=== PATIENT | female | born 1995 | race Caucasian/White ===

== ENCOUNTER → 2020-02-12 10:58 | Outpatient (CLI) | payer BC, SELFPAY ==
[2020-02-12 12:26] LABS: Progesterone Level 5.72 ng/mL (See Comment)
== END ==
PROVIDERS: Visit Provider Obstetrics & Gynecology
DX: N94.6 Dysmenorrhea, unspecified (principal); N93.9 Abnormal uterine and vaginal bleeding, unspecified
CPT/HCPCS: 36415; 84144

== ENCOUNTER → 2020-03-11 11:50 | Outpatient (CLI) | payer BC, SELFPAY ==
[2020-03-11 14:19] LABS: Progesterone Level 10.58 ng/mL (See Comment)
== END ==
PROVIDERS: Visit Provider Obstetrics & Gynecology
DX: N97.9 Female infertility, unspecified (principal)
CPT/HCPCS: 36415; 84144

== ENCOUNTER → 2020-04-07 17:05 | Outpatient (CLI) | payer BC, SELFPAY | PROVIDERS: Visit Provider Obstetrics & Gynecology | DX: Z12.4 Encounter for screening for malignant neoplasm of cervix (principal); Z11.3 Encounter for screening for infections with a predominantly sexual mode of transmission ==

== ENCOUNTER → 2020-04-22 13:39 | Outpatient (CLI) | payer BC, SELFPAY ==
[2020-04-22 15:52] LABS: Color, Urine Yellow (Yellow); Glucose, Dipstick Normal (Normal); Ketone-Dipstick 50 mg/dl (Negative); Leukocyte Esterase-Dipstick 100 /ul (Negative); Nitrite-Dipstick Negative (Negative); Occult Blood-Urine Negative /ul (Negative); Protein-Dipstick 15 mg/dl (Negative); Specific Gravity, Urine 1.025 (1.002-1.030); Urine Bilirubin Dipstick Negative (Negative); Urine Clarity Cloudy (Clear); Urine Urobilinogen Normal (Normal)
[2020-04-22 15:57] LABS: Absolute Lymphocyte Count 1.59 X10^3/uL (0.83-4.51); Absolute Neutrophil Count 5.6 X10^3/uL (2.0-7.7); Basophil# 0.02 X10^3/uL; Basophil% 0.3 % (0-1); Eosinophil# 0.02 X10^3/uL; Eosinophils% 0.3 % (0-5); Hematocrit 41.4 % (37-47); Hemoglobin 14.3 g/dL (12.0-15.0); Lymphocyte # 1.59 X10^3/ul (4.0); Lymphocyte % 20.4 % (19-41); Mean Corp Hgb Conc 34.5 g/dL (32-36); Mean Corpuscular Hgb 30.8 pg (27.0-32.0); Mean Corpuscular Volume 89.2 fL (81-99); Mean Platelet Vol. 11.8 fl (6.2-12.0); Monocyte# 0.56 X10^3/uL; Monocyte% 7.2 % (0-10); NRBC Flagged by Analyzer 0 % (0-5); Neutrophil % 71.7 % (47-70); Platelet Count 208 K/mm3 (150-450); RBC Distribution Width CV 12.2 % (11.6-14.6); Red Blood Count 4.64 M/mm3 (4.2-5.4); White Blood Count 7.8 K/mm3 (4.4-11.0)
[2020-04-22 16:12] LABS: Amphetamine Urine VISTA NEGATIVE (<1000 ng/mL); Barbiturate Urine VISTA NEGATIVE (< 200 ng/mL); Benzodiazepine Urine VISTA NEGATIVE (< 200 ng/mL); Cocaine Urine VISTA NEGATIVE (< 300 ng/mL); Ecstacy Urine VISTA NEGATIVE (< 500 ng/mL); Methadone Urine VISTA NEGATIVE (< 300 ng/mL); PCP Urine VISTA NEGATIVE (< 25 ng/mL); THC Urine VISTA NEGATIVE (< 50 ng/mL); Vista UDS pH Range 6
[2020-04-22 16:17] LABS: Thyroid Stim Hormone (TSH) 0.25 uIU/mL (0.358-3.74)
[2020-04-23 09:57] LABS: HIV - WCH Non-Reactive (Nonreactive); Hepatitis B Surface Antigen Non-Reactive (Nonreactive); Hepatitis C Antibody Non-Reactive (Nonreactive); Rubella IgG 30.9 IU/mL
[2020-04-23 12:25] LABS: Free T3 3.5 pg/mL (2.18-3.98); T4 Free Direct 1.29 ng/dL (0.76-1.46)
[2020-04-24 02:25] LABS: Prenatal RPR NONREACTIVE (NONREACTIVE)
== END ==
PROVIDERS: Visit Provider Obstetrics & Gynecology
DX: Z34.81 Encounter for supervision of other normal pregnancy, first trimester (principal); R97.8 Other abnormal tumor markers
CPT/HCPCS: 80307; 81002; 84439; 84443; 84481; 85025; 86703; 86762; 86803; 87340

== ENCOUNTER → 2020-07-28 17:47 | Outpatient (CLI) | payer BC, SELFPAY | PROVIDERS: Referring Provider Student in an Organized Health Care Education/Training Program; Visit Provider Student in an Organized Health Care Education/Training Program | DX: Z34.82 Encounter for supervision of other normal pregnancy, second trimester (principal); N39.0 Urinary tract infection, site not specified | CPT/HCPCS: 87086; 87088 ==

== ENCOUNTER → 2020-09-09 10:40 | Outpatient (CLI) | payer BC, SELFPAY ==
[2020-09-09 11:36] LABS: Hematocrit 34.5 % (37-47); Hemoglobin 11.6 g/dL (12.0-15.0); Mean Corp Hgb Conc 33.6 g/dL (32-36); Mean Corpuscular Volume 92.2 fL (81-99); Mean Platelet Vol. 11.1 fl (6.2-12.0); Platelet Count 243 K/mm3 (150-450); RBC Distribution Width CV 12.9 % (11.6-14.6); RBC Distribution Width SD 41.9 fl (35.1-43.9); Red Blood Count 3.74 M/mm3 (4.2-5.4); White Blood Count 9.9 K/mm3 (4.4-11.0)
[2020-09-09 11:42] LABS: Glucose Challenge Gest 1H 50g 106 mg/dL (70-140)
== END ==
PROVIDERS: Visit Provider Student in an Organized Health Care Education/Training Program
DX: Z34.83 Encounter for supervision of other normal pregnancy, third trimester (principal)
CPT/HCPCS: 36415; 82950; 85027; 86850

== ENCOUNTER → 2020-10-30 11:28 | Outpatient (CLI) | payer BC, SELFPAY ==
[2020-10-30 15:00] LABS: Hematocrit 34.5 % (37-47); Hemoglobin 11.1 g/dL (12.0-15.0); Mean Corp Hgb Conc 32.2 g/dL (32-36); Mean Corpuscular Hgb 28.3 pg (27.0-32.0); Mean Platelet Vol. 10.9 fl (6.2-12.0); Platelet Count 247 K/mm3 (150-450); RBC Distribution Width SD 41.7 fl (35.1-43.9); Red Blood Count 3.92 M/mm3 (4.2-5.4); White Blood Count 11.6 K/mm3 (4.4-11.0)
[2020-10-30 15:12] LABS: ALB/GLOB Ratio 0.7 RATIO (0.9-2.4); AST(SGOT) 10 U/L (15-37); Alanine Aminotransfer ALT/SGPT 14 U/L (13-56); Albumin, Serum 2.9 g/dL (3.2-5.0); Alkaline Phosphatase 133 U/L (45-117); Anion Gap 8 (5-15); BUN 5 mg/dL (7-18); Calcium,Total 9.3 mg/dL (8.5-10.1); Chloride 105 mmol/L (98-107); Creatinine, Serum 0.56 mg/dL (0.55-1.02); EST Glomerular Filtration Rate 143 mL/min (>60); Est Glom Filt Rate - Afr Amer 172 mL/min (>60); Globulin 4.4 g/dL (2.2-4.2); Glucose 93 mg/dL (74-106); Potassium 3.4 mmol/L (3.5-5.1); Protein, Total 7.3 g/dL (6.4-8.2); Sodium Level 138 mmol/L (136-145)
[2020-10-30 15:14] LABS: Prothrombin Time (Protime)PT. 12.6 SECONDS (11.7-14.9)
[2020-10-30 15:15] LABS: Partial Thromboplast Time 26.4 Seconds (24.1-36.2)
[2020-10-30 16:51] LABS: Group B Strep DNA By PCR Negative (Negative); Internal Control PASS; Probe Check PASS; Specimen Processing Control PASS
== END ==
PROVIDERS: Visit Provider Student in an Organized Health Care Education/Training Program
DX: L29.9 Pruritus, unspecified (principal); Z36.85 Encounter for antenatal screening for Streptococcus B
CPT/HCPCS: 36415; 80053; 85027; 85610; 85730; 87081; 87653

== ENCOUNTER → 2020-11-06 10:44 | Outpatient (CLI) | payer BC, SELFPAY ==
[2020-11-06 11:54] LABS: Hematocrit 31.6 % (37-47); Mean Corp Hgb Conc 31.6 g/dL (32-36); Mean Corpuscular Hgb 27.9 pg (27.0-32.0); Mean Platelet Vol. 10.9 fl (6.2-12.0); Platelet Count 215 K/mm3 (150-450); RBC Distribution Width CV 13.3 % (11.6-14.6); RBC Distribution Width SD 42.5 fl (35.1-43.9); Red Blood Count 3.59 M/mm3 (4.2-5.4); White Blood Count 9.3 K/mm3 (4.4-11.0)
[2020-11-06 12:03] LABS: Prothrombin Time (Protime)PT. 12.8 SECONDS (11.7-14.9)
[2020-11-06 12:04] LABS: Partial Thromboplast Time 25.4 Seconds (24.1-36.2)
[2020-11-06 12:06] LABS: ALB/GLOB Ratio 0.7 RATIO (0.9-2.4); AST(SGOT) 11 U/L (15-37); Alanine Aminotransfer ALT/SGPT 14 U/L (13-56); Albumin, Serum 2.7 g/dL (3.2-5.0); Alkaline Phosphatase 145 U/L (45-117); Anion Gap 8 (5-15); BUN 4 mg/dL (7-18); BUN/Creat Ratio 6.9 RATIO (10-20); Calcium,Total 8.8 mg/dL (8.5-10.1); Chloride 105 mmol/L (98-107); Creatinine, Serum 0.58 mg/dL (0.55-1.02); EST Glomerular Filtration Rate 137 mL/min (>60); Est Glom Filt Rate - Afr Amer 165 mL/min (>60); Globulin 4.1 g/dL (2.2-4.2); Glucose 86 mg/dL (74-106); Potassium 3.5 mmol/L (3.5-5.1); Protein, Total 6.8 g/dL (6.4-8.2); Sodium Level 137 mmol/L (136-145)
== END ==
PROVIDERS: Visit Provider Student in an Organized Health Care Education/Training Program
DX: O26.899 Other specified pregnancy related conditions, unspecified trimester (principal); Z3A.00 Weeks of gestation of pregnancy not specified
CPT/HCPCS: 36415; 80053; 85027; 85610; 85730

== ENCOUNTER 2020-11-12 09:15 | Inpatient (IN) | payer BC, SELFPAY ==
[2020-11-12] VITALS (11 sets, daily range): BP systolic 107–116; BP diastolic 56–72; PULSE 80–120; TEMP 36.6–37.3; O2SAT 98–99; BMI 27.8
[2020-11-12] MEDS: Lactated Ringers 1,000 ML 50 ML IV (09:35)
[2020-11-12 09:52] LABS: Absolute Lymphocyte Count 1.72 X10^3/uL (0.83-4.51); Absolute Neutrophil Count 6.8 X10^3/uL (2.0-7.7); Basophil# 0.01 X10^3/uL; Basophil% 0.1 % (0-1); Eosinophil# 0.06 X10^3/uL; Eosinophils% 0.6 % (0-5); Hematocrit 30.8 % (37-47); Lymphocyte # 1.72 X10^3/ul (4.0); Lymphocyte % 18.3 % (19-41); Mean Corp Hgb Conc 32.5 g/dL (32-36); Mean Corpuscular Hgb 27.7 pg (27.0-32.0); Mean Corpuscular Volume 85.3 fL (81-99); Mean Platelet Vol. 10.7 fl (6.2-12.0); Monocyte# 0.79 X10^3/uL; Monocyte% 8.4 % (0-10); NRBC Flagged by Analyzer 0 % (0-5); Neutrophil # 6.76 X10^3/uL (2.7-7.7); Platelet Count 241 K/mm3 (150-450); RBC Distribution Width CV 13.2 % (11.6-14.6); RBC Distribution Width SD 41.1 fl (35.1-43.9); Red Blood Count 3.61 M/mm3 (4.2-5.4); White Blood Count 9.4 K/mm3 (4.4-11.0)
[2020-11-12] MEDS: miSOPROStol 25 MCG TABLET PO ×4 (10:11→22:29)
--- NOTE | 2020-11-12 11:43 | PCM.HPOB.BLA ---
History and Physical Date of Admission: 11/12/20 HPI 25 yo at 37/5w, CHYNA 11/27/20 by 8w US, admitted for induction of labor for cholestasis based on symptoms with improvement on ursodiol. Denies LOF, VB, contractions. +FM. This is complicated by: cholestasis Obstetrical History Past Medical History Denies Medications PNV, ursodiol Past Surgical History [place] teeth extraction Social History Tobacco use: denies Alcohol use: denies Illicit drug use: denies Labs Blood type: AB neg Rubella: immune Hep B/C: neg/neg HIV: neg RPR: nonreactive GBS: negative 10/30 Allergies sulfa Review of Systems General: alert and oriented HEENT: _denies change of vision Heart/lungs: _denies CP, SOB GI: _denies nausea, vomiting, dysuria, diarrhea MSK: _denies calf pain, tenderness Physical Exam Vital Signs Temp Pulse BP 11/12/20 09:47 97.8 F 11/12/20 09:44 88 116/69 General: a&o x3, NAD HEENT: normocephalic, atraumatic Cardio: no JVD Resp: no increased work in breathing Abdomen: soft, gravid, nontender Extremities: _minimal-moderate edema CE: per RN FHT:135/mod vivi/+accel/no decel [place]: rare Labs Laboratory Last Values WBC 9.4 K/mm3 (4.4-11.0) 11/12/20 09:35 RBC 3.61 M/mm3 (4.2-5.4) L 11/12/20 09:35 Hgb 10.0 g/dL (12.0-15.0) L 11/12/20 09:35 Hct 30.8 % (37-47) L 11/12/20 09:35 MCV 85.3 fL (81-99) 11/12/20 09:35 MCH 27.7 pg (27.0-32.0) 11/12/20 09:35 MCHC 32.5 g/dL (32-36) 11/12/20 09:35 RDW Std Deviation 41.1 fl (35.1-43.9) 11/12/20 09:35 RDW Coeff of Vivi 13.2 % (11.6-14.6) 11/12/20 09:35 Plt Count 241 K/mm3 (150-450) 11/12/20 09:35 MPV 10.7 fl (6.2-12.0) 11/12/20 09:35 Immature Gran % (Auto) 0.600 % (0.0-0.9) 11/12/20 09:35 Neut % (Auto) 72.0 % (47-70) H 11/12/20 09:35 Lymph % (Auto) 18.3 % (19-41) L 11/12/20 09:35 [place] % (Auto) 8.4 % (0-10) 11/12/20 09:35 Eos % (Auto) 0.6 % (0-5) 11/12/20 09:35 Baso % (Auto) 0.1 % (0-1) 11/12/20 09:35 Absolute Neuts (auto) 6.8 X10^3/uL (2.0-7.7) 11/12/20 09:35 Absolute Lymphs (auto) 1.72 X10^3/uL (0.83-4.51) 11/12/20 09:35 Nucleated RBC % 0 % (0-5) 11/12/20 09:35 Blood Type AB NEGATIVE 11/12/20 09:35 Antibody Screen NEGATIVE 11/12/20 09:35 Assessment & Plan 25 yo at 37/5w, CHYNA 11/27/20 by 8w US, admitted for induction of labor for cholestasis based on symptoms with improvement on ursodiol. This is complicated by: cholestasis Admit to L&D - Routine labor orders - cytotec induction - GBS neg - CEFM - Anesthesia to see
[2020-11-12] MEDS: Acetaminophen 500 MG Tablet PO (18:33)
[2020-11-13] VITALS (65 sets, daily range): BP systolic 90–144; BP diastolic 47–80; PULSE 73–229; RESP 16; TEMP 36.1–37.3; O2SAT 84–100
--- NOTE | 2020-11-13 00:46 | PN.OBGYN_ITS ---
Subjective: Patient has progressed to 60/extremely posterior. Has had 4 doses of Cytotec. Will start Pitocin at 6 AM and anticipate being able to rupture membranes in the morning. heart tones remain reactive and reassuring. Patient raffy every 3 minutes but not feeling them on the Cytotec - Physical Exam Vitals/I&O's: Vital Signs Temp Pulse BP Pulse Ox 98.3 F 95 110/56 L 99 11/12/20 22:23 11/12/20 22:24 11/12/20 22:23 11/12/20 22:24 Weight: 157 lb Body Mass Index (BMI) 27.8 Intake and Output for Last 24 Hours 11/11/20 11/12/20 11/13/20 23:59 23:59 23:59 Intake Total 910.83 / 910.83 Output Total 250 / 250 Balance 660.83 / 660.83 Laboratory Results 11/12/20 09:35: WBC 9.4, RBC 3.61 L, Hgb 10.0 L, Hct 30.8 L, MCV 85.3, MCH 27.7, MCHC 32.5, RDW Std Deviation 41.1, RDW Coeff of Vivi 13.2, Plt Count 241, MPV 10.7, Immature Gran % (Auto) 0.600, Neut % (Auto) 72.0 H, Lymph % (Auto) 18.3 L, [place] % (Auto) 8.4, Eos % (Auto) 0.6, Baso % (Auto) 0.1, Absolute Neuts (auto) 6.8, Absolute Lymphs (auto) 1.72, Nucleated RBC % 0 11/12/20 09:35: Blood Type AB NEGATIVE, Antibody Screen NEGATIVE Current Medications Acetaminophen (Acetaminophen 500 Mg Tablet) 500 - 1,000 mg PO Q6H PRN PRN PRN Reason: Pain Score 1-3 Last Admin: 11/12/20 18:33 Dose: 1,000 mg Documented by: Al Hydroxide/Mg Hydroxide (Mag Hydrox/Al Hydrox/Simeth 30 Ml Udc) 15 - 30 ml PO Q4H PRN PRN PRN Reason: INDIGESTION Citric Acid/Sodium Citrate (Sodium Citrate/Citric Acid 30 Ml Udc) 30 ml PO X1 PRN PRN Reason: Section Fentanyl Citrate (Fentanyl 100 Mcg/2 Ml Ampul) 25 - 50 mcg IV Q2H PRN PRN PRN Reason: Pain Score 4-10 Lactated Ringer's () 500 mls @ 999 mls/hr IV .Q31M PRN PRN Reason: Epidural Lactated Ringer's () 500 mls @ 999 mls/hr IV .Q31M PRN PRN Reason: Corrective Measures Lactated Ringer's () 1,000 mls @ 50 mls/hr IV .Q20H [facility] Last Infusion: 11/12/20 10:00 Dose: 0 mls/hr Documented by: Misoprostol (Misoprostol 25 Mcg Tablet) 25 mcg PO Q4H [facility] Last Admin: 11/12/20 22:29 Dose: 25 mcg Documented by: Ondansetron HCl (Ondansetron 4 Mg/2 Ml Vial) 4 mg IV Q4H PRN PRN PRN Reason: NAUSEA Prochlorperazine Edisylate (Prochlorperazine 10 Mg/2 Ml Vial) 10 mg IV Q6H PRN PRN PRN Reason: NAUSEA Sodium Chloride (0.9% Saline Lock 10 Ml Syringe) 10 - 40 ml IV X1 PRN PRN Reason: SALINE FLUSH Medical Necessity - Tobacco Use Smoking Status: Never smoker
[2020-11-13] MEDS: 0.9% Saline Lock 10 ML Syringe IV ×2 (06:03→06:04)
[2020-11-13] MEDS: Oxytocin 30 units/NS 500 ml 30 UNITS/500 ML IV.SOLN IV (06:04)
--- NOTE | 2020-11-13 12:34 | PCM.PN.BLA ---
Progress Note CE 3/60/-3, AROM clear fluid. FHR 140/mod oscar/+accel/no decel, toco q3. Cat I. Continue titrating pitocin as tolerated. STROKE Vital Signs/Narrative: Vital Signs Temp Pulse BP Pulse Ox 11/13/20 11:44 89 11/13/20 11:42 88 112/58 L 99 11/13/20 11:41 97.2 F L 11/13/20 10:47 86 11/13/20 10:46 73 115/69 11/13/20 09:40 97.9 F 85 120/66 99 11/13/20 08:54 98.7 F 96 100/57 L 98
[2020-11-13] MEDS: Lactated Ringers 500 ML 999 ML IV ×2 (12:53→14:27)
[2020-11-13] MEDS: fentaNYL-bupivacaine (epidural) 100 ML BAG EPIDURAL ×2 (13:28→18:37)
[2020-11-13] MEDS: Lactated Ringers 1,000 ML 200 ML IV (17:08)
[2020-11-13] MEDS: Oxytocin 30 units/NS 500 ml 30 UNITS/500 ML IV.SOLN 334 UNITS IV (19:01)
--- NOTE | 2020-11-13 19:14 | PCM.OPRPT ---
Vaginal Delivery Maternal Presentation: Elective Induction Medical Reason for Induction: Maternal Medical Condition: list: - Cholestasis Amniotic Membrane Rupture Type: Artificial Amniotic Fluid Description: Clear Final CHYNA: 11/27/20 Final CHYNA Source: LMP Gestational age: 38 Weeks and 0 Days Date of Procedure: 11/13/20 Pre-Operative Diagnosis: Cholestasis, fowler intrauterine Post-Operative Diagnosis: Cholestasis, fowler intrauterine Surgery/ Procedure Performed: Spontaneous Vaginal Delivery Type of Anesthesia: Epidural Description of Procedure: Spontaneous vaginal delivery viable female. Nuchal cord x1 loose, reduced. Baby to mom, cord clamped and cut. Spontaneous delivery of placenta. Bilateral labial abrasions reapproximated, hemostatic. EBL 400cc. Infant A gender: Female (1 minute): 8 (5 minute): 9
[2020-11-13] MEDS: Acetaminophen 500 MG Tablet 1000 MG PO (21:23)
[2020-11-14] MEDS: Ibuprofen 600 MG Tablet PO ×2 (04:44→13:40)
[2020-11-14 04:50] VITALS: BP 100/55; PULSE 77; RESP 16; TEMP 36.7; O2SAT 100
[2020-11-14 07:58] VITALS: BP 102/53; PULSE 84; RESP 18; TEMP 36.4; O2SAT 98
[2020-11-14] MEDS: Acetaminophen 500 MG Tablet 1000 MG PO ×2 (08:13→19:47)
--- NOTE | 2020-11-14 09:38 | PCM.PN.OB ---
Subjective: PPD#1. Doing well. Sore. going well. - Physical Exam Vitals/I&O's: Vital Signs Temp Pulse Resp BP Pulse Ox 97.5 F L 84 18 102/53 L 98 11/14/20 07:58 11/14/20 07:58 11/14/20 07:58 11/14/20 07:58 11/14/20 07:58 Oxygen Delivery Method Room Air Weight: 71.214 kg Body Mass Index (BMI) 27.8 Intake and Output for Last 24 Hours 11/12/20 11/13/20 11/14/20 23:59 23:59 23:59 Intake Total 910.83 / 910.83 3519.51 / 3519.51 Output Total 250 / 250 900 / 900 500 / 500 Balance 660.83 / 660.83 2619.51 / 2619.51 -500 / -500 General: Alert, Oriented x3, No apparent distress HEENT: Atraumatic, Normocephalic Neck: Supple Lungs: Normal air movement Cardiovascular: Regular rate Abdomen: Soft - uterus 2 cm below umbilicus, Gravid Extremities: No edema Neurological: Cranial nerves II-XII grossly intact Psych/Mental Status: Normal Affect, Appropriate Microbiology Past 72 Hours 11/13/20 09:05 Mucosa - Nose SARS-CoV-2 Antigen (Rapid) - Final Current Medications Acetaminophen (Acetaminophen 500 Mg Tablet) 1,000 mg PO Q8H PRN PRN PRN Reason: Pain Score 1-3 Last Admin: 11/14/20 08:13 Dose: 1,000 mg Documented by: Bisacodyl (Bisacodyl 10 Mg Suppository) 10 mg RECTAL UD PRN PRN Reason: If no BM Dibucaine (Dibucaine 30 Gm Tube) 1 applic TOPICAL TID PRN PRN; Protocol PRN Reason: Discomfort Hydrocortisone (Hydrocortisone 2.5% Crm) 1 applic TOPICAL TID PRN PRN; Protocol PRN Reason: Discomfort Ibuprofen (Ibuprofen 600 Mg Tablet) 600 mg PO Q6H PRN PRN PRN Reason: Pain Score 1-3 Last Admin: 11/14/20 04:44 Dose: 600 mg Documented by: Ondansetron HCl (Ondansetron 4 Mg/2 Ml Vial) 4 mg IV Q4H PRN PRN PRN Reason: Nausea Senna/Docusate Sodium (Senna/Docusate Sodium 1 Tablet) 1 - 2 tablet PO DAILY PRN PRN PRN Reason: Constipation Simethicone (Simethicone 80 Mg Tablet) 80 mg PO PCHS PRN PRN Reason: Indigestion/Stomach pain Sodium Chloride (0.9% Saline Lock 10 Ml Syringe) 5 - 15 ml IV UD PRN PRN Reason: SALINE FLUSH Zolpidem Tartrate (Zolpidem Tartrate 5 Mg Tablet) 5 mg PO QHS PRN PRN PRN Reason: Insomnia Medical Necessity - Tobacco Use Smoking Status: Never smoker Assessment/Plan PPD#1 s/p . . Lochia minimal, had increased slightly this morning after ambulating - continue monitoring. Home tomorrow.
[2020-11-14 12:04] VITALS: BP 114/69; PULSE 80; RESP 16; TEMP 36.4; O2SAT 97
[2020-11-14 15:19] VITALS: BP 116/60; PULSE 80; RESP 16; TEMP 36.4; O2SAT 98
[2020-11-14 19:55] VITALS: BP 114/57; PULSE 83; RESP 16; TEMP 36.4; O2SAT 98
[2020-11-15] MEDS: Ibuprofen 600 MG Tablet PO (00:33)
[2020-11-15 03:00] VITALS: BP 100/47; PULSE 72; RESP 16; TEMP 36.6; O2SAT 96
[2020-11-15] MEDS: Acetaminophen 500 MG Tablet 1000 MG PO (07:40)
--- NOTE | 2020-11-15 07:41 | PCM.PN.OB ---
Subjective: No issues overnight. Feels well today. Has mild cramping with nursing, but otherwise no complaints. Denies heavy lochia. Nursing is going well. Objective: avss - Physical Exam Vitals/I&O's: Vital Signs Temp Pulse Resp BP Pulse Ox 97.8 F 72 16 100/47 L 96 11/15/20 03:00 11/15/20 03:00 11/15/20 03:00 11/15/20 03:00 11/15/20 03:00 Oxygen Delivery Method Room Air Weight: 71.214 kg Body Mass Index (BMI) 27.8 Intake and Output for Last 24 Hours 11/13/20 11/14/20 11/15/20 23:59 23:59 23:59 Intake Total 3519.51 / 3519.51 Output Total 900 / 900 500 / 500 Balance 2619.51 / 2619.51 -500 / -500 General: Alert, Oriented x3, Cooperative, No apparent distress HEENT: Atraumatic, Normocephalic Lungs: Clear to auscultation, Normal air movement Cardiovascular: Regular rate, Regular Rhythm, Normal S1, Normal S2 Abdomen: Soft, Non Tender, Non-Distended Extremities: No edema, No Calf Tenderness Neurological: Neuro grossly intact Psych/Mental Status: Normal Affect, Appropriate, Alert and oriented to time, place, person, mood and affect Microbiology Past 72 Hours 11/13/20 09:05 Mucosa - Nose SARS-CoV-2 Antigen (Rapid) - Final Current Medications Acetaminophen (Acetaminophen 500 Mg Tablet) 1,000 mg PO Q8H PRN PRN PRN Reason: Pain Score 1-3 Last Admin: 11/14/20 19:47 Dose: 1,000 mg Documented by: Bisacodyl (Bisacodyl 10 Mg Suppository) 10 mg RECTAL UD PRN PRN Reason: If no BM Dibucaine (Dibucaine 30 Gm Tube) 1 applic TOPICAL TID PRN PRN; Protocol PRN Reason: Discomfort Hydrocortisone (Hydrocortisone 2.5% Crm) 1 applic TOPICAL TID PRN PRN; Protocol PRN Reason: Discomfort Ibuprofen (Ibuprofen 600 Mg Tablet) 600 mg PO Q6H PRN PRN PRN Reason: Pain Score 1-3 Last Admin: 11/15/20 00:33 Dose: 600 mg Documented by: Ondansetron HCl (Ondansetron 4 Mg/2 Ml Vial) 4 mg IV Q4H PRN PRN PRN Reason: Nausea Senna/Docusate Sodium (Senna/Docusate Sodium 1 Tablet) 1 - 2 tablet PO DAILY PRN PRN PRN Reason: Constipation Simethicone (Simethicone 80 Mg Tablet) 80 mg PO PCHS PRN PRN Reason: Indigestion/Stomach pain Sodium Chloride (0.9% Saline Lock 10 Ml Syringe) 5 - 15 ml IV UD PRN PRN Reason: SALINE FLUSH Zolpidem Tartrate (Zolpidem Tartrate 5 Mg Tablet) 5 mg PO QHS PRN PRN PRN Reason: Insomnia Medical Necessity - Tobacco Use Smoking Status: Never smoker Assessment/Plan 25yo G1 PPD#2 s/p doing well. -hx cholestasis - -Rh positive -Plan d/c home today
[2020-11-15 07:45] VITALS: BP 109/69; PULSE 71; RESP 16; TEMP 36.3; O2SAT 97
--- NOTE | 2020-11-15 07:46 | DCINST_ITS ---
Discharge Diet: No Restrictions Discharge Activity: Return to Normal Activity, May Shower, May Take a Tub Bath May resume sexual activity in: 4-6 weeks Call your doctor if you observe: Fever of 101 or Higher, Inability to urinate, Inability to have a bowel movement, Using more than one pad per hour, Shortness of breath, Chest pain, Calf discomfort, Uncontrolled pain Additional Instructions: If you experience any of the following, contact your healthcare provider. * Bleeding that soaks a pad every hour for 2 hours * Fever 100.4 or higher * Unrelieved incision or abdominal pain * Swelling, redness, discharge or bleeding from your incision or episiotomy site * Your incision begins to separate * Problems urinating (including inability to urinate or burning while urinating). * Visual changes * Severe headache * Flu-like symptoms * Pain or redness in one of both of your breasts * Pain, warmth, tenderness or swelling in your legs, especially the calf area * Frequent nausea and vomiting * Symptoms of depression or anxiety If you experience any of the following, call 911 or go to the nearest Emergency Room. * Chest pain * Problems breathing * Seizure activity * Partial or complete paralysis of a body part, slurred speech, weakness or drooping of the face, or a sudden inability to walk or hold your balance Allergies/Adverse Reactions: Allergies sulfamethoxazole [From Bactrim] Allergy (Verified 11/12/20 09:33) Swelling trimethoprim [From Bactrim] Allergy (Verified 11/12/20 09:33) Swelling Medications to take at Discharge Caplet 11/12/20 Ursodiol 11/12/20 Please Follow Up With: Rhea Magdaleno DO Primary Care Physician: Care Physician,No Primary [Primary Care Provider] - Test Results: Test results from this visit will be discussed in further detail at your follow- up appointment, if applicable.
--- NOTE | 2020-11-15 07:46 | PCM.DCVAG ---
Discharge Diet: No Restrictions Discharge Activity: Return to Normal Activity, May Shower, May Take a Tub Bath May resume sexual activity in: 4-6 weeks Call your doctor if you observe: Fever of 101 or Higher, Inability to urinate, Inability to have a bowel movement, Using more than one pad per hour, Shortness of breath, Chest pain, Calf discomfort, Uncontrolled pain Additional Instructions: If you experience any of the following, contact your healthcare provider. Bleeding that soaks a pad every hour for 2 hours Fever 100.4 or higher Unrelieved incision or abdominal pain Swelling, redness, discharge or bleeding from your incision or episiotomy site Your incision begins to separate Problems urinating (including inability to urinate or burning while urinating). Visual changes Severe headache Flu-like symptoms Pain or redness in one of both of your breasts Pain, warmth, tenderness or swelling in your legs, especially the calf area Frequent nausea and vomiting Symptoms of depression or anxiety If you experience any of the following, call 911 or go to the nearest Emergency Room. Chest pain Problems breathing Seizure activity Partial or complete paralysis of a body part, slurred speech, weakness or drooping of the face, or a sudden inability to walk or hold your balance Allergies/Adverse Reactions: Allergies sulfamethoxazole [From Bactrim] Allergy (Verified 11/12/20 09:33) Swelling trimethoprim [From Bactrim] Allergy (Verified 11/12/20 09:33) Swelling Medications to take at Discharge Caplet 11/12/20 Ursodiol 11/12/20 Please Follow Up With: Rhea Magdaleno DO Primary Care Physician: Care Physician,No Primary [Primary Care Provider] - Test Results: Test results from this visit will be discussed in further detail at your follow-up appointment, if applicable.
--- NOTE | 2020-11-15 07:49 | PCM.DC.SUM ---
Discharge Date and Diagnosis Date of Admission: 11/12/20 Date of Discharge: 11/15/20 Hospital Course and Treatment Consultations 11/12/20 09:39 Consult: Anesthesia Routine Comment: Reason For Exam: Labor Operations: None Procedures: None Summary of Care Provided: The patient is a 25 year old F G1 admitted at 37 5/7wga with hx cholestasis for induction of labor. She had an uncomplicated on hospital day #2 and was discharged to home on day #2. - Physical Exam Vitals/I&O's: Vital Signs Temp Pulse Resp BP Pulse Ox 97.8 F 72 16 100/47 L 96 11/15/20 03:00 11/15/20 03:00 11/15/20 03:00 11/15/20 03:00 11/15/20 03:00 Oxygen Delivery Method Room Air Weight: 71.214 kg Body Mass Index (BMI) 27.8 Intake and Output for Last 24 Hours 11/13/20 11/14/20 11/15/20 23:59 23:59 23:59 Intake Total 3519.51 / 3519.51 Output Total 900 / 900 500 / 500 Balance 2619.51 / 2619.51 -500 / -500 Microbiology Past 72 Hours 11/13/20 09:05 Mucosa - Nose SARS-CoV-2 Antigen (Rapid) - Final Current Medications Acetaminophen (Acetaminophen 500 Mg Tablet) 1,000 mg PO Q8H PRN PRN PRN Reason: Pain Score 1-3 Last Admin: 11/15/20 07:40 Dose: 1,000 mg Documented by: Bisacodyl (Bisacodyl 10 Mg Suppository) 10 mg RECTAL UD PRN PRN Reason: If no BM Dibucaine (Dibucaine 30 Gm Tube) 1 applic TOPICAL TID PRN PRN; Protocol PRN Reason: Discomfort Hydrocortisone (Hydrocortisone 2.5% Crm) 1 applic TOPICAL TID PRN PRN; Protocol PRN Reason: Discomfort Ibuprofen (Ibuprofen 600 Mg Tablet) 600 mg PO Q6H PRN PRN PRN Reason: Pain Score 1-3 Last Admin: 11/15/20 00:33 Dose: 600 mg Documented by: Ondansetron HCl (Ondansetron 4 Mg/2 Ml Vial) 4 mg IV Q4H PRN PRN PRN Reason: Nausea Senna/Docusate Sodium (Senna/Docusate Sodium 1 Tablet) 1 - 2 tablet PO DAILY PRN PRN PRN Reason: Constipation Simethicone (Simethicone 80 Mg Tablet) 80 mg PO PCHS PRN PRN Reason: Indigestion/Stomach pain Sodium Chloride (0.9% Saline Lock 10 Ml Syringe) 5 - 15 ml IV UD PRN PRN Reason: SALINE FLUSH Zolpidem Tartrate (Zolpidem Tartrate 5 Mg Tablet) 5 mg PO QHS PRN PRN PRN Reason: Insomnia Discharge Diet: No Restrictions Discharge Activity: Return to Normal Activity, May Shower, May Take a Tub Bath May resume sexual activity in: 4-6 weeks Call your doctor if you observe: Fever of 101 or Higher, Inability to urinate, Inability to have a bowel movement, Using more than one pad per hour, Shortness of breath, Chest pain, Calf discomfort, Uncontrolled pain Home Medications: Medications to take at Discharge Caplet 11/12/20 Primary Care Physician: Care Physician,No Primary [Primary Care Provider] - Please Follow Up With: Rhea Magdaleno DO Medical Necessity - Tobacco Use Smoking Status: Never smoker Meaningful Use Info Meaningful Use Diagnoses (Choose all that apply): None applicable
[2020-11-15 12:38] VITALS: RESP 16; TEMP 36.7; O2SAT 97
== END 2020-11-15 14:00 | disposition home or self-care (01) | DRG 805 ==
PROVIDERS: Admitting Provider Student in an Organized Health Care Education/Training Program; Referring Provider Student in an Organized Health Care Education/Training Program; Visit Provider Student in an Organized Health Care Education/Training Program
DX: O26.62 Liver and biliary tract disorders in childbirth (principal); K83.1 Obstruction of bile duct; Z37.0 Single live birth; Z3A.37 37 weeks gestation of pregnancy; O69.81X0 Labor and delivery complicated by cord around neck, without compression, not applicable or unspecified; O71.82 Other specified trauma to perineum and vulva
CPT/HCPCS: 59025; 59050; 85025; 86850; 86900; 86901; 87426; 99218; J7120; A4216; G0378

== ENCOUNTER → 2021-09-15 13:55 | Outpatient (CLI) | payer BC, SELFPAY ==
[2021-09-15 14:28] LABS: Absolute Lymphocyte Count 1.71 X10^3/uL (0.83-4.51); Absolute Neutrophil Count 5.4 X10^3/uL (2.0-7.7); Basophil# 0.02 X10^3/uL; Basophil% 0.3 % (0-1); Eosinophil# 0.01 X10^3/uL; Eosinophils% 0.1 % (0-5); Hematocrit 38.6 % (37-47); Hemoglobin 13.2 g/dL (12.0-15.0); Lymphocyte # 1.71 X10^3/ul (0.83-4.51); Mean Corp Hgb Conc 34.2 g/dL (32-36); Mean Corpuscular Hgb 30.1 pg (27.0-32.0); Mean Corpuscular Volume 87.9 fL (81-99); Mean Platelet Vol. 11.4 fl (6.2-12.0); Monocyte# 0.63 X10^3/uL; Monocyte% 8.1 % (0-10); NRBC Flagged by Analyzer 0 % (0-5); Neutrophil # 5.37 X10^3/uL (2.7-7.7); Neutrophil % 69.2 % (47-70); Platelet Count 255 K/mm3 (150-450); RBC Distribution Width CV 12.6 % (11.6-14.6); RBC Distribution Width SD 40.6 fl (35.1-43.9); Red Blood Count 4.39 M/mm3 (4.2-5.4); White Blood Count 7.8 K/mm3 (4.4-11.0)
[2021-09-15 15:38] LABS: HIV - WCH Non-Reactive (Nonreactive); Hepatitis B Surface Antigen Non-Reactive (Nonreactive); Hepatitis C Antibody Non-Reactive (Nonreactive); Rubella IgG Reactive (Nonreactive); Syphilis Antibodies Non-reactive
[2021-09-17 22:07] LABS: Chlamydia By Nucleic Acid AMP Negative (Negative)
[2021-09-18 08:08] LABS: Gonococcus By Nucleic Acid AMP Negative (Negative)
== END ==
PROVIDERS: Visit Provider Student in an Organized Health Care Education/Training Program
DX: Z34.81 Encounter for supervision of other normal pregnancy, first trimester (principal)
CPT/HCPCS: 36415; 85025; 86703; 86762; 86780; 86803; 87086; 87088; 87340; 87491; 87591

== ENCOUNTER → 2022-02-23 | Outpatient (CLI) | payer BC, SELFPAY ==
[2022-02-23 17:12] LABS: Hematocrit 33.6 % (37-47); Hemoglobin 11.1 g/dL (12.0-15.0); Mean Corpuscular Hgb 30.2 pg (27.0-32.0); Mean Corpuscular Volume 91.3 fL (81-99); Mean Platelet Vol. 11.4 fl (6.2-12.0); Platelet Count 212 K/mm3 (150-450); RBC Distribution Width CV 12.7 % (11.6-14.6); RBC Distribution Width SD 41.5 fl (35.1-43.9); Red Blood Count 3.68 M/mm3 (4.2-5.4); White Blood Count 10.7 K/mm3 (4.4-11.0)
[2022-02-23 17:52] LABS: Glucose Challenge Gest 1H 50g 101 mg/dL (70-140)
== END | disposition home or self-care (01) ==
LOC: WOBLAB 16:12
PROVIDERS: Visit Provider Student in an Organized Health Care Education/Training Program
DX: Z34.83 Encounter for supervision of other normal pregnancy, third trimester (principal)
CPT/HCPCS: 36415; 82950; 85027; 86850

== ENCOUNTER → 2022-03-23 | Outpatient (CLI) | payer BC, SELFPAY ==
[2022-03-23 15:22] LABS: ALB/GLOB Ratio 0.6 RATIO (0.9-2.4); AST(SGOT) 8 U/L (15-37); Alanine Aminotransfer ALT/SGPT 14 U/L (13-56); Albumin, Serum 2.6 g/dL (3.2-5.0); Alkaline Phosphatase 112 U/L (45-117); Anion Gap 10 (5-15); BUN 4 mg/dL (7-18); BUN/Creat Ratio 6.8 RATIO (10-20); Calcium,Total 8.7 mg/dL (8.5-10.1); Chloride 109 mmol/L (98-107); Creatinine, Serum 0.58 mg/dL (0.55-1.02); EST Glomerular Filtration Rate 133 mL/min (>60); Est Glom Filt Rate - Afr Amer 160 mL/min (>60); Glucose 84 mg/dL (74-106); Potassium 3.6 mmol/L (3.5-5.1); Protein, Total 6.6 g/dL (6.4-8.2); Sodium Level 139 mmol/L (136-145)
== END | disposition home or self-care (01) ==
PROVIDERS: Visit Provider Student in an Organized Health Care Education/Training Program
DX: O99.713 Diseases of the skin and subcutaneous tissue complicating pregnancy, third trimester (principal); L29.9 Pruritus, unspecified; Z3A.00 Weeks of gestation of pregnancy not specified
CPT/HCPCS: 36415; 80053

== ENCOUNTER → 2022-04-06 | Outpatient (CLI) | payer BC, SELFPAY ==
[2022-04-06 17:55] LABS: Protein, Urine (Random) 9.6 mg/dL (<11.9); Protein:Creat Ratio 174 mg/g CRE (0-200)
[2022-04-06 17:58] LABS: Hematocrit 32.6 % (37-47); Hemoglobin 10.7 g/dL (12.0-15.0); Mean Corp Hgb Conc 32.8 g/dL (32-36); Mean Corpuscular Hgb 27.9 pg (27.0-32.0); Mean Corpuscular Volume 85.1 fL (81-99); Mean Platelet Vol. 11.4 fl (6.2-12.0); Platelet Count 212 K/mm3 (150-450); RBC Distribution Width CV 13.1 % (11.6-14.6); RBC Distribution Width SD 40.1 fl (35.1-43.9); Red Blood Count 3.83 M/mm3 (4.2-5.4); White Blood Count 12.2 K/mm3 (4.4-11.0)
[2022-04-06 18:23] LABS: ALB/GLOB Ratio 0.6 RATIO (0.9-2.4); AST(SGOT) 12 U/L (15-37); Alanine Aminotransfer ALT/SGPT 12 U/L (13-56); Albumin, Serum 2.7 g/dL (3.2-5.0); Alkaline Phosphatase 133 U/L (45-117); Anion Gap 6 (5-15); BUN 4 mg/dL (7-18); BUN/Creat Ratio 8.1 RATIO (10-20); Calcium,Total 9.1 mg/dL (8.5-10.1); Chloride 106 mmol/L (98-107); EST Glomerular Filtration Rate 160 mL/min (>60); Est Glom Filt Rate - Afr Amer 194 mL/min (>60); Globulin 4.4 g/dL (2.2-4.2); Glucose 91 mg/dL (74-106); LDH 153 U/L (84-246); Potassium 4.2 mmol/L (3.5-5.1); Protein, Total 7.1 g/dL (6.4-8.2); Sodium Level 137 mmol/L (136-145)
== END | disposition home or self-care (01) ==
PROVIDERS: Visit Provider Student in an Organized Health Care Education/Training Program
DX: Z34.93 Encounter for supervision of normal pregnancy, unspecified, third trimester (principal)
CPT/HCPCS: 36415; 80053; 82570; 83615; 84156; 85027; 87086; 87088

== ENCOUNTER → 2022-04-26 | Outpatient (CLI) | payer BC, SELFPAY ==
[2022-04-26 12:09] LABS: ALB/GLOB Ratio 0.6 RATIO (0.9-2.4); AST(SGOT) 14 U/L (15-37); Alanine Aminotransfer ALT/SGPT 14 U/L (13-56); Albumin, Serum 2.6 g/dL (3.2-5.0); Alkaline Phosphatase 159 U/L (45-117); Anion Gap 10 (5-15); BUN 3 mg/dL (7-18); BUN/Creat Ratio 4.2 RATIO (10-20); Calcium,Total 9.2 mg/dL (8.5-10.1); Chloride 106 mmol/L (98-107); Creatinine, Serum 0.71 mg/dL (0.55-1.02); EST Glomerular Filtration Rate 106 mL/min (>60); Est Glom Filt Rate - Afr Amer 128 mL/min (>60); Globulin 4.2 g/dL (2.2-4.2); Glucose 105 mg/dL (74-106); Potassium 3.4 mmol/L (3.5-5.1); Protein, Total 6.8 g/dL (6.4-8.2); Sodium Level 137 mmol/L (136-145)
== END | disposition home or self-care (01) ==
PROVIDERS: Visit Provider Student in an Organized Health Care Education/Training Program
DX: Z36.85 Encounter for antenatal screening for Streptococcus B (principal)
CPT/HCPCS: 36415; 80053; 87081

== ENCOUNTER 2022-05-05 19:00 | Inpatient (IN) | payer BC, SELFPAY ==
[2022-05-05] VITALS (7 sets, daily range): BP systolic 115–122; BP diastolic 60–72; PULSE 63–84; TEMP 36.4–36.6; O2SAT 98–99; BMI 28.7
[2022-05-05] MEDS: Lactated Ringers 1,000 ML 50 ML IV (20:00)
[2022-05-05 20:25] LABS: Absolute Lymphocyte Count 1.91 X10^3/uL (0.83-4.51); Basophil# 0.02 X10^3/uL; Basophil% 0.2 % (0-1); Eosinophil# 0.02 X10^3/uL; Eosinophils% 0.2 % (0-5); Hematocrit 32.2 % (37-47); Hemoglobin 10.1 g/dL (12.0-15.0); Lymphocyte # 1.91 X10^3/ul (0.83-4.51); Lymphocyte % 19.5 % (19-41); Mean Corp Hgb Conc 31.4 g/dL (32-36); Mean Corpuscular Hgb 26.8 pg (27.0-32.0); Mean Corpuscular Volume 85.4 fL (81-99); Mean Platelet Vol. 11.4 fl (6.2-12.0); Monocyte# 0.84 X10^3/uL; Monocyte% 8.6 % (0-10); NRBC Flagged by Analyzer 0 % (0-5); Neutrophil # 6.98 X10^3/uL (2.7-7.7); Neutrophil % 71.2 % (47-70); Platelet Count 212 K/mm3 (150-450); RBC Distribution Width CV 15.3 % (11.6-14.6); RBC Distribution Width SD 46.9 fl (35.1-43.9); Red Blood Count 3.77 M/mm3 (4.2-5.4); White Blood Count 9.8 K/mm3 (4.4-11.0)
[2022-05-05] MEDS: Oxytocin 30 units/NS 500 ml 30 UNITS/500 ML IV.SOLN IV (21:10)
--- NOTE | 2022-05-05 22:55 | PCM.HP.BLA ---
History and Physical Date of Admission: 05/05/22 Chief complaint: Induction of labor cholestasis at term History of present illness: 26-year-old G2, P1 at 38 weeks and 0 days with CHYNA 05/19/2022 by 6-week ultrasound arrives for induction of labor for cholestasis. Denies headache, visual changes, chest pain, shortness of breath, nausea vomit, right upper quadrant pain. Patient states good movement. is complicated by cholestasis, rh negative Obstetrical history: G1: 38-week female 11/2020 complicated by cholestasis G2: Current Past medical history: Anxiety Medications: Lexapro Past Surgical history: [place] tooth extraction Allergies: Bactrim Social history: denies smoking, alcohol or drug use Family History: Denies history DVT or PE Review of systems: Besides above pertinent positives a full review of systems was performed and found to be negative Physical exam: Vital signs: Blood pressure 104/51 pulse 75 General: Normal-appearing no acute distress none HEENT: Normocephalic atraumatic no cervical of adenopathy Cardiac/respiratory: ACS versus muscles, nonlabored breathing Abdomen: Soft, nontender, gravid Extremities: No peripheral edema normal peripheral pulses Psych: Normal affect normal demeanor nonpressured speech Labs: White blood cell count 9.8 hemoglobin 10.1 hematocrit 32.2 platelets 212. Blood type AB- antibody negative Assessment plan: 26-year-old G2, P1 at 30 weeks and 0 days for induction of labor with cholestasis Admit labor and delivery CEFM GBS negative Pitocin induction Routine orders Anesthesia to see
[2022-05-05] MEDS: LACTATED RINGERS 500 ML 999 ML IV (23:19)
[2022-05-06] VITALS (48 sets, daily range): BP systolic 98–147; BP diastolic 42–76; PULSE 58–123; RESP 16–18; TEMP 36.3–37.2; O2SAT 82–100
[2022-05-06] MEDS: fentaNYL-bupivacaine (epidural) 100 ML BAG EPIDURAL ×2 (00:40→05:18)
[2022-05-06] MEDS: Lactated Ringers 1,000 ML 200 ML IV (03:16)
[2022-05-06] MEDS: Oxytocin 30 units/NS 500 ml 30 UNITS/500 ML IV.SOLN 334 UNITS IV (09:09)
--- NOTE | 2022-05-06 09:19 | EX.PCM.OBRPT ---
Maternal Data Information Final CHYNA: 05/19/22 Vaginal Delivery Operative Information Date of Procedure: 05/06/22 Pre-Operative Diagnosis: Álvarez intrauterine , cholestasis Post-Operative Diagnosis: Álvarez intrauterine , cholestasis Surgery / Procedure Performed: Spontaneous Vaginal Delivery Type of Anesthesia: Epidural Estimated Blood Loss: 250cc Findings Description of Procedure: Spontaneous vaginal delivery of viable infant male. No nuchal cord. Baby to mom. Cord clamped and cut. Spontaneous delivery of placenta. Bilateral labial lacerations, hemostatic without intervention. A Gender: Male (1 minute): 8 (5 minute): 9
--- NOTE | 2022-05-06 11:29 | NURSING ---
Pt missed hat when voiding but felt she fully emptied bladder. Void x1 completed.
[2022-05-06] MEDS: Ibuprofen 600 MG Tablet PO ×2 (12:27→20:06)
--- NOTE | 2022-05-06 13:31 | NURSING ---
Pt did not use hat in toilet, felt she emptied her bladder fully. Void x2 complete.
[2022-05-06] MEDS: Acetaminophen 500 MG Tablet 1000 MG PO ×2 (15:58→22:15)
[2022-05-07 03:45] VITALS: BP 96/42; PULSE 61; RESP 16; TEMP 36.4; O2SAT 97
[2022-05-07] MEDS: Ibuprofen 600 MG Tablet PO (05:53)
--- NOTE | 2022-05-07 07:09 | DCINST_ITS ---
Discharge Instructions Diet Discharge Diet: No restrictions Activity Discharge Activity: Return to Normal Activity and May Drive May resume sexual activity in: 4-6 weeks Weight Bearing Status: Weight bearing as tolerated Dressing / Incision Call your doctor if your incision/area has: Continuous Slow Oozing and Foul Smelling Discharge Call your doctor if you observe: Fever of 101 or Higher, Shortness of breath and Chest pain Follow Up Care Please Follow Up With: Jesse Magdaleno MD When: follow up four to six weeks Test Results: Test results from this visit will be discussed in further detail at your follow- up appointment, if applicable. Discharge Plan Admission Admit Date/Time: 05/05/22 19:00 Attending Provider: Rhea Magdaleno Primary Care Provider: Care Physician,Maureen Primary Discharge Orders/Prescriptions Prescriptions: No Action Caplet 1 gummy PO/SL DAILY ursodiol 1 tab PO/SL DAILY Pepcid 1 cap PO/SL DAILY Referrals / Follow Up: Care Physician,No Primary [Primary Care Provider] - Disposition Discharge Orders: Discharge Patient (Routine); Ordered 05/07/22 Ordered By: Dr. Jesse Magdaleno
--- NOTE | 2022-05-07 07:09 | PN.OBGYN_ITS ---
Subjective Subjective No overnight complaints Objective Data Objective Data Vital Signs: Vital Signs Temp Pulse Resp BP Pulse Ox O2 Del Method 97.6 F L 61 16 96/42 L 97 Room Air 05/07/22 03:45 05/07/22 03:45 05/07/22 03:45 05/07/22 03:45 05/07/22 03:45 05/07/22 03:45 Oxygen Delivery Method Room Air Weight: 162 lb 0.636 oz Body Mass Index (BMI) 28.7 Intake & Output: Intake and Output for Last 24 Hours 05/05/22 05/06/22 05/07/22 23:59 23:59 23:59 Intake Total 701.31 / 701.31 2263.92 / 2263.92 Output Total 800 / 800 Balance 701.31 / 701.31 1463.92 / 1463.92 Lab / Micro Data Result Diagrams: 05/05/22 20:00 Labs: Laboratory Results - last 24 hr 05/06/22 10:45: Screen NEGATIVE, Baby's Blood Type B POSITIVE, Baby's ALAN NEGATIVE Micro: Microbiology 05/05/22 20:15 Nasal Secretion SARS-CoV-2 Antigen (Rapid) - Final Physical Exam Const alert, oriented x3, no apparent distress, average body habitus, healthy appearing and well nourished HEENT normocephalic Neck full ROM Resp normal respiratory effort, no retractions and no use of accessory muscles GI GI Narrative: Soft, nontender, uterus firm and below umbilicus Extremity normal to inspection, full ROM and no clubbing, cyanosis or edema Psych mental status grossly normal, affect normal, speech normal and activity/motor behavior normal Assessment & Plan (1) Vaginal delivery: PLAN: day 1. Breast-feeding. Pain well controlled. 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
[2022-05-07] MEDS: Acetaminophen 500 MG Tablet 1000 MG PO (09:47)
[2022-05-07 10:28] VITALS: BP 116/60; PULSE 80; RESP 18; TEMP 37.1; O2SAT 99
== END 2022-05-07 10:30 | disposition home or self-care (01) | DRG 805 ==
PROVIDERS: Obstetrics & Gynecology; Admitting Provider Student in an Organized Health Care Education/Training Program; Visit Provider Student in an Organized Health Care Education/Training Program
DX: O26.62 Liver and biliary tract disorders in childbirth (principal); Z37.0 Single live birth; K83.1 Obstruction of bile duct; Z3A.38 38 weeks gestation of pregnancy
CPT/HCPCS: 59025; 59050; 85025; 85461; 86850; 86900; 86901; 87426; 90384; 99218; J7120; G0378; J2790

== ENCOUNTER → 2023-04-01 | Outpatient (CLI) | payer BC, SELFPAY ==
[2023-04-01 16:33] LABS: Hematocrit 40.5 % (37-47); Hemoglobin 13.5 g/dL (12.0-15.0); Mean Corp Hgb Conc 33.3 g/dL (32-36); Mean Corpuscular Volume 87.1 fL (81-99); Mean Platelet Vol. 11.7 fl (6.2-12.0); Platelet Count 254 K/mm3 (150-450); RBC Distribution Width CV 12.1 % (11.6-14.6); RBC Distribution Width SD 39.1 fl (35.1-43.9); Red Blood Count 4.65 M/mm3 (4.2-5.4)
[2023-04-01 16:47] LABS: Progesterone Level 0.36 ng/mL (See Comment)
[2023-04-01 16:52] LABS: Estradiol 51.1 pg/mL; Follicle Stimulating Hormone 7.4 mIU/mL; Luteinizing Hormone 9.4 mIU/mL; Prolactin 5.1 ng/mL; T4 Free Direct 0.96 ng/dL (0.76-1.46); Thyroid Stim Hormone (TSH) 0.71 uIU/mL (0.358-3.74)
[2023-04-07 19:12] LABS: HPV Reflexed? NOT INDICATED
== END | disposition home or self-care (01) ==
LOC: WOBLAB 15:42
PROVIDERS: Visit Provider Student in an Organized Health Care Education/Training Program
DX: Z12.4 Encounter for screening for malignant neoplasm of cervix (principal); N93.9 Abnormal uterine and vaginal bleeding, unspecified
CPT/HCPCS: 36415; 82670; 83001; 83002; 84144; 84146; 84439; 84443; 85027; 88175; G0145

== ENCOUNTER → 2023-05-09 | Outpatient (CLI) | payer BC, SELFPAY ==
--- NOTE | 2023-05-09 10:40 | EMB_PTH ---
PATIENT: LOURDES SORTO LOC: [facility] U#:[id number] AGE/SX: 27/F ROOM: RE05/09/[address]: Dr. Rhea Magdaleno DO : 1995 BED: DIS: 05/09/2023 SPEC #: [id number] RECD: 05/09/23 11:10 STATUS: TESHA JONNIE #: [id number] CATHERINE: 05/09/23 10:[address]: Rhea Magdaleno DEPT: SURGICAL PATHOLOGY RECD BY: Cinthia Lim ENTERED: 05/09/23 13:18 SP TYPE: ENDOM BX/C WILI DR: No Primary Care Phys Tissues: Endometrium, NOS Procedures: Surgery Specimen Level IV HEADER OPERATION: Endometrial biopsy PRE-OP DIAGNOSIS: N93.9 TISSUE SUBMITTED: Endometrial biopsy MICROSCOPIC DIAGNOSIS Endometrium, biopsy: Proliferative endometrium with minimal disorder and focal glandular breakdown. AM:lashaun 05/10/2023 MICROSCOPIC DESCRIPTION Slides are reviewed. GROSS DESCRIPTION Received in fixative is one container labeled with the patient's name and designated endometrial biopsy. The specimen consists of multiple irregular fragments of pink soft tissue that in aggregate measure 2.0 x 2.0 x 0.2 cm. The specimen is totally submitted in one cassette. / SJ:lashaun 05/09/2023 TC:5 CPT: 31758
== END | disposition home or self-care (01) ==
LOC: LABSPEC 10:57
PROVIDERS: Visit Provider Student in an Organized Health Care Education/Training Program
DX: N93.9 Abnormal uterine and vaginal bleeding, unspecified (principal)
CPT/HCPCS: 88305

== ENCOUNTER 2023-05-19 07:30 | Day surgery (SDC) | payer BC, SELFPAY ==
[2023-05-19] VITALS (7 sets, daily range): BP systolic 95–132; BP diastolic 52–85; PULSE 63–109; RESP 16–18; TEMP 36.3–37.1; O2SAT 97–100; BMI 25.9
--- NOTE | 2023-05-19 | FALS_PTH ---
PATIENT: LOURDES SORTO LOC: [facility] U#:[id number] AGE/SX: 27/F ROOM: RE05/19/[address]: Dr. Rhea Magdaleno, : 1995 BED: DIS: 05/19/2023 SPEC #: [id number] RECD: 05/19/23 12:22 STATUS: TESHA JONNIE #: [id number] CATHERINE: 05/19/23 00:[address]: Rhea Magdaleno DEPT: SURGICAL PATHOLOGY RECD BY: Isac Mendoza ENTERED: 05/19/23 12:23 SP TYPE: FALL TUBES OTHR DR: No Primary Care Phys Tissues: A - Endometrium, NOS B - Fallopian tube Procedures: Surgery Specimen Level II Surgery Specimen Level IV HEADER OPERATION: Hysteroscopy, D & C Kimberly, lap bilateral salpingectomy PRE-OP DIAGNOSIS: Abnormal uterine bleeding, sterilization TISSUE SUBMITTED: A - Endometrial curettings, B - Bilateral fallopian tubes MICROSCOPIC DIAGNOSIS A. Endometrium, curettings: Secretory endometrium. B. Right and left fallopian tubes, bilateral salpingectomies: Complete cross-sections of fallopian tubes with no pathologic change. AM:lashaun 05/20/2023 MICROSCOPIC DESCRIPTION Slides are reviewed. GROSS DESCRIPTION A - Received in fixative is one container labeled with the patient's name and designated endometrial curettings. The specimen consists of multiple irregular fragments of pink-jones soft tissue that in aggregate measure 3.0 x 1.5 x 0.1 cm. The specimen is totally submitted in one cassette. B - Received in fixative is one container labeled with the patient's name and designated bilateral fallopian tubes. The specimen consists of two fallopian tubes with an average length of 7.0 cm and has an average diameter of 0.6 cm. Both fallopian tubes have normal fimbriated ends. No mass lesions are identified. Atg Architect sections are submitted in two cassettes as follows: 1 - one fallopian tube, 2??the other fallopian tube. / AM:lashaun 05/19/2023 TC:5 CPT: 23030 x2, [id number]
[2023-05-19 08:04] LABS: Hematocrit 38.9 % (37-47); Mean Corp Hgb Conc 33.4 g/dL (32-36); Mean Corpuscular Hgb 28.9 pg (27.0-32.0); Mean Corpuscular Volume 86.4 fL (81-99); Mean Platelet Vol. 11.2 fl (6.2-12.0); Platelet Count 208 K/mm3 (150-450); RBC Distribution Width CV 12.9 % (11.6-14.6); RBC Distribution Width SD 40.5 fl (35.1-43.9); White Blood Count 6.4 K/mm3 (4.4-11.0)
[2023-05-19] MEDS: Lactated Ringers 1,000 ML 15 ML IV (08:04)
[2023-05-19 08:10] LABS: Internal QC Validated? YES +Cl - CLEAR BKGD; Pregnancy, Urine Negative Negative
--- NOTE | 2023-05-19 08:41 | HP.PCM.OB_ITS ---
History and Physical Date of Admission: 05/19/23 HPI: 27-year-old female with abnormal uterine bleeding and desire for permanent sterilization plan for hysteroscopy, dilation curettage, endometrial ablation, bilateral laparoscopic salpingectomy. Denies headache or vision changes, chest pain or shortness of breath, nausea or vomiting, diarrhea constipations, fevers and chills. 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 Medical history: Denies Medication: Denies Surgical history: Denies Family history: Denies history of blood clots or bleeding disorders, no history of issues with anesthesia Allergies: Bactrim/sulfa Social history: Denies tobacco, alcohol, drug use Review of system: Negative otherwise stated above Physical exam: Blood pressure 106/71, heart rate 86, respiratory rate 18, temp 97.9 ?F, oxygen saturation 98% on room air General: No acute distress HEENT: Normal cephalic/atraumatic Cardiorespiratory: No increased effort, regular rate and rhythm, lungs clear Abdomen: Soft, nontender Extremities: No edema Neurologic: No focal deficits Musculoskeletal: Moves all extremities equally Assessment/plan: 27-year-old female with abnormal uterine bleeding and desire for permanent sterilization plan for hysteroscopy, dilation curettage, endometrial ablation, bilateral laparoscopic salpingectomy. All risk, benefits, alternatives discussed with the patient. Risks include but are not limited to: Risk of bleeding to the point of transfusion, infection, injury to surrounding tissue including bowel/bladder potentially requiring prolonged Gray catheter use/major abdominal vessels, VTE, ICU admission. Patient also aware of risk of regret of permanent sterilization. Patient to notify provider if she were to become . Patient aware and consented.
[2023-05-19] MEDS: Lubricating Jelly 60 GM Tube 30 GM (09:40)
[2023-05-19] MEDS: Acetaminophen 500 MG Tablet 1000 MG PO (10:18)
--- NOTE | 2023-05-19 10:19 | PCM.OPRPT ---
Report of Operation Date of Procedure: 05/19/23 Pre-Operative Diagnosis: Abnormal uterine bleeding, desires permanent sterilization Post-Operative Diagnosis: Abnormal uterine bleeding, desires permanent sterilization Surgery/Procedure Performed:: Hysteroscopy, dilation and curettage, endometrial ablation with Kimberly, laparoscopic bilateral salpingectomy Description of Surgical Findings:: Normal-appearing external genitalia and cervix. Normal-appearing endometrial cavity. Minimal uterine descensus. Normal-appearing ovaries and bilateral fallopian tubes. Surgeon: Rhea Magdaleno national expansion recruiter: Austin Subramanian Type of Anesthesia: General Specimen's removed: Endometrial curettings, bilateral fallopian tubes Estimated Blood Loss (mL): 5 cc Fluids Replaced: 1200 cc Description of Procedure: Indication/risk/benefits: 27-year-old female with abnormal uterine bleeding and desire for permanent sterilization plan for hysteroscopy, dilation curettage, endometrial ablation, bilateral laparoscopic salpingectomy. All risk, benefits, alternatives discussed with the patient. Risks include but are not limited to: Risk of bleeding to the point of transfusion, infection, injury to surrounding tissue including bowel/bladder potentially requiring prolonged Gray catheter use/major abdominal vessels, VTE, ICU admission. Patient also aware of risk of regret of permanent sterilization. Patient to notify provider if she were to become . Patient aware and consented. Procedure: Patient was taken to the operating room and placed under general anesthesia. Patient was placed in the dorsal lithotomy position and prepped and draped in usual sterile fashion. Gray catheter placed. Weighted speculum placed in the posterior vagina and Paz retractor used to visualize the cervix. Anterior lip of the cervix grasped with Allis clamp. Cervix sequentially dilated. Uterus sounded to 8 cm. Cervix to 4 cm. Hysteroscope placed through the endometrial cavity noting findings above. Hysteroscope removed. Kimberly device opened. Kimberly device placed and deployed, passed safety checks. Kimberly ablation completed. Kimberly device removed. Sargis manipulator placed. Weighted speculum and Allis clamps removed. Gloves were changed and attention turned to the anterior abdominal wall. Infraumbilical incision made with scalpel. Attempted to place trocar under direct visualization. Veress needle then placed through umbilicus, with pressure of 4 mmHg. Abdomen insufflated. Infraumbilical trocar then placed. Right and left lower quadrant trocars placed, 5 mm in the left and 8 mm in the right. Inspection of the pelvis noted findings above. Left fallopian tube grasped at the fimbriated end and removed along the mesosalpinx using LigaSure device to the cornua . Fallopian tube removed through the right lower quadrant trocar. Right fallopian tube grasped at the fimbriated end and removed along the mesosalpinx using LigaSure device to the cornua. Fallopian tube removed. Mesosalpinx confirmed to be hemostatic. Abdomen desufflated and trocars removed. Skin closed with subcuticular stitch and skin glue. Uterine manipulator removed. Cervix hemostatic. Gray catheter removed. Urine output: 600 cc clear yellow urine. Complications None Admit VTE Documentation VTE Mechan Device Prophylaxis: SCD's
--- NOTE | 2023-05-19 10:23 | DCINST_ITS ---
Discharge Instructions Diet Discharge Diet: No restrictions Activity Discharge Activity: Return to Normal Activity and May Shower May resume sexual activity in: 2 weeks Weight Bearing Status: Weight bearing as tolerated Lifting Restrictions: No greater than 25 pounds Dressing / Incision Call your doctor if your incision/area has: Continuous Slow Oozing, Increased Pain/ Swelling, Increased Redness and Foul Smelling Discharge Call your doctor if you observe: Fever of 101 or Higher, Inability to urinate, Using more than 1 pad per hour, Shortness of breath, Chest pain, Calf discomfort and Uncontrolled pain Cleanse incision/area with: Soap & Water and Keep Dressing Clean & Dry Follow Up Care Please Follow Up With: Rhea Magdaleno DO When: 2 weeks post operative visit. Test Results: Test results from this visit will be discussed in further detail at your follow- up appointment, if applicable. Discharge Plan Admission Primary Reason for Your Visit: Ablation and salpingectomy Attending Provider: Rhea Magdaleno Primary Care Provider: Care Physician,Maureen Primary Discharge Orders/Prescriptions Prescriptions: New oxycodone 5 mg Tablet 5 mg PO Q6H PRN PRN (Reason: Pain Score 6-10) 4 Days Qty: 5 0RF Referrals / Follow Up: Care Physician,Maureen Primary [Primary Care Provider] - Disposition Disposition (needs filled in before D/C Order can be placed): Home, Self Care
== END 2023-05-19 14:26 | disposition home or self-care (01) ==
LOC: SDC 07:30 → AC 07:32
PROVIDERS: Anesthesiology; Referring Provider Student in an Organized Health Care Education/Training Program; Visit Provider Student in an Organized Health Care Education/Training Program
PROC: 0U5B8ZZ Destruction of Endometrium, Via Natural or Artificial Opening Endoscopic (ICD-10-PCS; CPT 58558; principal; 2023-05-19 09:00)
PROC: (CPT 58661; 2023-05-19 09:00)
DX: Z30.2 Encounter for sterilization (principal); N93.9 Abnormal uterine and vaginal bleeding, unspecified
CPT/HCPCS: 58661; 58563; 00840; 81025; 85027; 86850; 86900; 86901; 88302; 88305; J7120; J2405